=== PATIENT | male | born 1985 | race Caucasian/White ===

== ENCOUNTER 2024-09-27 19:49 | Emergency (ER) | payer OTHER ==
[~2024-09-27] VITALS: Ht 177.8 cm; Wt 104.3 kg
[2024-09-27] MEDS ORDERED: ALPRAZOLAM0.5 M3 PO (20:04)
[2024-09-27] MEDS ORDERED: LOSARTAN POTASS50 M1 PO (20:05)
[2024-09-27] MEDS ORDERED: Tdap Vaccine 0.5 ML SYR (Adult Vaccine) IM ONE (20:35)
[2024-09-27] MEDS ORDERED: Lidocaine Hydrochloride 2% 10 ML AMP SC ONE (20:40)
[2024-09-27] MEDS ORDERED: Bacitracin Zinc 14 GM TUBE T ONE (20:40)
[2024-09-27] MEDS ORDERED: Lidocaine Hydrochloride 5 ML AMP SC ONE (20:50)
[2024-09-27] MEDS ORDERED: CEPHALEXIN500 M1 PO (21:48)
[2024-09-27] MEDS ORDERED: CEPHALEXIN 500 MG CAP PO ONE (21:50)
== END 2024-09-27 22:01 | disposition home or self-care (01) ==
LOC: ED 19:49
DX: S61.211A Laceration without foreign body of left index finger without damage to nail, initial encounter (principal); W26.0XXA Contact with knife, initial encounter; Y93.89 Activity, other specified; Y92.89 Other specified places as the place of occurrence of the external cause; Y99.8 Other external cause status